=== PATIENT | female | born 1990 | race Caucasian/White ===

== ENCOUNTER 2016-12-16 18:21 | Outpatient (CLI) | payer OTHER ==
[~2016-12-16] VITALS: Ht 175.3 cm; Wt 81.5 kg
[2016-12-16 18:42] VITALS: Ht 175.3 cm; Wt 81.5 kg
[2016-12-16] MEDS ORDERED: PRENAT PO (18:43)
--- NOTE | 2016-12-16 19:12 | RADRPT ---
PROCEDURE: US OB. CLINICAL INDICATION: Cystic structure on left lung TECHNIQUE: Pelvic ultrasound performed for biophysical profile. COMPARISON: None FINDINGS: Single intrauterine gestation present with heart rate at 126 beats per minute. Presentation is ceph alic. Placenta is anterior, grade II. Biophysical profile score is 8/8 (breathing=2, movement=2, t one =2, fluid volume=2). Amniotic fluid volume is within normal limits, with MEDINA = 17.1 cm. RPTAT:HJJR IMPRESSION: Biophysical profile score 8/8. Physician Kelby Date Time Electronically viewed and signed by Physician Kelby on 12/16/2016 19:12 JR/
[2016-12-16] MEDS ORDERED: TERBUTALINE 1 MG/ML INJ SC ONE (20:00)
[2016-12-16 20:46] LABS: ADD SCAN DIFF NO
[2016-12-16 20:48] LABS: BASOPHILS % 0.3 % (0.0-2.0); EOSINOPHILS # 0.1 10^3/ul (0.0-0.5); EOSINOPHILS % 0.6 % (0.0-7.0); HEMATOCRIT 32.5 % (37.0-47.0); HEMOGLOBIN 11.3 g/dl (12.0-16.0); LYMPHOCYTES # 2.8 10^3/ul (0.8-2.9); MEAN CORPUSCULAR HEMOGLOBIN 31.2 pg (29.0-33.0); MEAN CORPUSCULAR HGB CONC 34.8 g/dl (32.0-37.0); MEAN CORPUSCULAR VOLUME 89.8 fl (82.0-101.0); MEAN PLATELET VOLUME 11.8 fl (7.4-10.4); MONOCYTE # 0.8 10^3/ul (0.3-0.9); MONOCYTES % 7.6 % (0.0-11.0); NEUTROPHIL # 6.7 10^3/ul (1.6-7.5); NEUTROPHILS % 63.8 % (39.0-77.0); PLATELET COUNT 188 10^3/UL (140-415); RED BLOOD COUNT 3.62 10^6/ul (4.20-5.40); RED CELL DISTRIBUTION WIDTH 12.4 % (11.5-14.5); WHITE BLOOD COUNT 10.5 10^3/ul (4.8-10.8)
[2016-12-16 21:01] LABS: ADD UMIC YES; URINE BILIRUBIN (Dip) NEGATIVE (NEGATIVE); URINE BLOOD (Dip) NEGATIVE (NEGATIVE); URINE COLOR LT. YELLOW (YELLOW); URINE GLUCOSE (Dip) NEGATIVE (NEGATIVE); URINE KETONES (Dip) NEGATIVE (NEGATIVE); URINE LEUKOCYTE ESTERASE (Dip) 2+ (NEGATIVE); URINE NITRITE (Dip) NEGATIVE (NEGATIVE); URINE TOTAL PROTEIN (Dip) NEGATIVE (NEGATIVE); URINE UROBILINOGEN (Dip) 0.2 E.U./dL (0.1-1.0)
[2016-12-16 21:10] LABS: ALBUMIN/GLOBULIN RATIO 0.96
[2016-12-16 21:13] LABS: URINE RBCS NONE SEEN /HPF (0)
[2016-12-16 21:14] LABS: BILIRUBIN,INDIRECT 0.2 mg/dl (0-1.1); BILIRUBIN,TOTAL 0.2 mg/dl (0.2-1.3); CALCIUM 8.8 mg/dl (8.4-10.2); CREATININE 0.74 mg/dl (0.44-1.00); TOTAL PROTEIN 6.1 g/dl (6.1-8.1); URIC ACID 6.1 mg/dl (3.1-7.9)
[2016-12-16 21:15] LABS: INR 0.83; PROTIME 11.4 Sec (12.2-14.2); PT RATIO 0.9
[2016-12-16 21:16] LABS: PARTIAL THROMBOPLASTIN TIME 30.3 Sec (25.0-35.0)
--- NOTE | 2016-12-16 22:51 | TRIAGE ---
OB Triage Datetime Report Generated by CPN: 12/16/2016 22:51 Datetime: 12/16/2016 22:10 Stage of : OB Triage Datetime: 12/16/2016 22:00 Labor Evaluation Frequency: IRREGULAR Monitor Mode: External Duration (sec)2399: 60 Quality: Mild Pattern: Normal: <= 5 Contractions in 10 Minutes Resting Tone [place]: Relaxed Heart Rate FHR Baseline Rate: 125 Monitor Mode: External US FHR Baseline Changes: No Baseline Change Variability: Moderate 6-25 bpm Accelerations: 15X15 Decelerations: None Category: Category I Datetime: 12/16/2016 21:00 Labor Evaluation Frequency: IRREGULAR Duration (sec)2399: 40-60 Pattern: Normal: <= 5 Contractions in 10 Minutes Resting Tone [place]: Relaxed Heart Rate FHR Baseline Rate: 125 Monitor Mode: External US FHR Baseline Changes: No Baseline Change Variability: Moderate 6-25 bpm Accelerations: 15X15 Decelerations: Variable Category: Category I Datetime: 12/16/2016 20:00 Labor Evaluation Frequency: 2-7 Monitor Mode: External Duration (sec)2399: 80-110 Quality: Mild Pattern: Normal: <= 5 Contractions in 10 Minutes Resting Tone [place]: Relaxed Heart Rate FHR Baseline Rate: 125 Monitor Mode: External US FHR Baseline Changes: No Baseline Change Variability: Moderate 6-25 bpm Accelerations: 15X15 Decelerations: None Category: Category I Datetime: 12/16/2016 19:39 Stage of : OB Triage Datetime: 12/16/2016 19:38 Stage of : OB Triage Datetime: 12/16/2016 18:55 Labor Evaluation Frequency: 1 Monitor Mode: External Duration (sec)2399: 80 Quality: Mild Pattern: Normal: <= 5 Contractions in 10 Minutes Resting Tone [place]: Relaxed Heart Rate FHR Baseline Rate: 120 Monitor Mode: External US FHR Baseline Changes: No Baseline Change Variability: Moderate 6-25 bpm Accelerations: 15X15 Decelerations: None Category: Category I Datetime: 12/16/2016 18:30 Stage of : OB Triage Assessment Type: Triage Maternal Assessment Level of Consciousness: Fully Conscious DTR's/Clonus: DTRs 2+; No Clonus Headache: Denies Blurred Vision: No Respiratory Effort: Unlabored; Regular Rhythm; Equal Expansion Breath Sounds, Left: Clear and Equal Breath Sounds, Right: Clear and Equal Nausea/Vomiting: Denies RUQ Epigastric Pain: Denies Lower Extremities Edema: None Degree: None Upper Extremities Edema: None Degree: None Facial Edema: None Temperature Route: Axillary Fall Risk Assessment History of Falling: (0) No Secondary Diagnosis: (0) No Ambulatory Aid: (0) Bedrest/Nurse Assist IV Therapy: (0) No Gait: (0) Normal/Bedrest/Immobile Mental Status: (0) Oriented to Own Ability Fall Score: 0 Fall Risk Score Definition: No Risk: No action required Datetime: 12/16/2016 18:20 Stage of : OB Triage Datetime: 12/16/2016 18:13 Time of Arrival: 12/16/2016 18:13 EGA: 34.2 Arrived By: Ambulatory Arrived From: Home Chief Complaint: CYSTIC STRUCTURE ON LEFT LUNG Movement: Present Contractions: Denies/Absent Rupture of Membranes: Denies Vaginal Bleeding: None Vaginal Discharge: Denies Recent Sexual Intercouse: Denies Abdominal Trauma: Not Applicable Patient Complaints: None Time Provider Notified: 12/16/2016 19:39 Provider Notified: CHRISTINA Initial Plan: CHAPIN MARTINEZ
--- NOTE | 2016-12-16 22:54 | QN ---
Documentation Comment Laborist Dr Machado's pt 26 y.o. 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 The ECHO was normal. Upon arrival it was noted that she has some mild blood pressure elevations. Pt denies visual changes , epigastric pain, or headache. She has some lower extremity swelling but does not report hand or facial swelling. Her BP's in the clinic were 110-129/58-77, the highest numbers being the most recent. Her BP in NST clinic 3 days ago was similar. PMHx: none. PSHx: none. NKDA. BP's: 153/77, 141/71, 136/70, 151/77, 136/76, 143/80, 172/86, 166/86, 166/90, 181/91, 170/83, 164/84. ALT/AST /. Uric acid 6.1 Platelets 188K. No protein on urine. NST:baseline 150 bpm with accels to 170 bpm. No decels. UC's were noted q2-13 minutes apart. After one dose of terbutaline they completely abated. A: IUP at 34 weeks. Gestational hypertension. CPAM. P: D/C home. Pt to begin a 24 hour urine collection in the morning and to return with it on Monday 12/18. Will re-evaluate her BP and labwork at that time. Reviewed PIH and the signs and symptoms and answered all the questions of the pt and her mother. She understands what signs to return sooner for. DOMI VASQUEZ MD December 16, 2016 22:54
== END 2016-12-16 22:19 | disposition home or self-care (01) ==
LOC: OBT 18:21 → L-D 18:22 → OBT 22:19
PROVIDERS: ATTEND Obstetrics & Gynecology
DX: O13.3 Gestational [pregnancy-induced] hypertension without significant proteinuria, third trimester (principal); Z3A.34 34 weeks gestation of pregnancy
CPT/HCPCS: 36415; 76818; 80053; 81001; 84560; 85025; 85610; 85730; 87086; J3105; Z7500; G0463

== ENCOUNTER 2016-12-18 09:07 | Outpatient (CLI) | payer OTHER ==
[~2016-12-18] VITALS: Ht 175.3 cm; Wt 81.1 kg
[~2016-12-18 09:07] MED LIST: PRENAT PO
[2016-12-18 09:30] LABS: COLLECTION PERIOD 24 hrs
[2016-12-18 09:38] VITALS: BP 131/72; PULSE 63; RESP 17
[2016-12-18 09:41] VITALS: Ht 175.3 cm; Wt 81.1 kg
[2016-12-18] MEDS ORDERED: TERBUTALINE 1 MG/ML INJ SC ONE (10:30)
[2016-12-18 10:50] LABS: ADD SCAN DIFF NO
[2016-12-18 11:00] LABS: BASOPHILS % 0.1 % (0.0-2.0); EOSINOPHILS % 0.3 % (0.0-7.0); HEMOGLOBIN 11.5 g/dl (12.0-16.0); LYMPHOCYTES # 2.7 10^3/ul (0.8-2.9); LYMPHOCYTES % 27.1 % (15.0-51.0); MEAN CORPUSCULAR HEMOGLOBIN 30.7 pg (29.0-33.0); MEAN CORPUSCULAR HGB CONC 33.8 g/dl (32.0-37.0); MEAN CORPUSCULAR VOLUME 90.9 fl (82.0-101.0); MEAN PLATELET VOLUME 11.9 fl (7.4-10.4); MONOCYTE # 0.7 10^3/ul (0.3-0.9); NEUTROPHIL # 6.4 10^3/ul (1.6-7.5); NEUTROPHILS % 64.9 % (39.0-77.0); PLATELET COUNT 187 10^3/UL (140-415); RED BLOOD COUNT 3.74 10^6/ul (4.20-5.40); RED CELL DISTRIBUTION WIDTH 12.5 % (11.5-14.5); WHITE BLOOD COUNT 9.9 10^3/ul (4.8-10.8)
[2016-12-18 11:30] LABS: ALBUMIN/GLOBULIN RATIO 0.96; BILIRUBIN,INDIRECT 0.3 mg/dl (0-1.1); BILIRUBIN,TOTAL 0.3 mg/dl (0.2-1.3); CALCIUM 8.4 mg/dl (8.4-10.2); CREATININE 0.82 mg/dl (0.44-1.00); POTASSIUM 4.4 mmol/L (3.5-5.1); TOTAL PROTEIN 6.1 g/dl (6.1-8.1)
[2016-12-18 11:54] LABS: SCRET 0.82 mg/dl (0.44-1.00)
[2016-12-18 12:14] LABS: ADD UMIC YES; URINE BILIRUBIN (Dip) NEGATIVE (NEGATIVE); URINE BLOOD (Dip) NEGATIVE (NEGATIVE); URINE COLOR LT. YELLOW (YELLOW); URINE GLUCOSE (Dip) NEGATIVE (NEGATIVE); URINE KETONES (Dip) NEGATIVE (NEGATIVE); URINE LEUKOCYTE ESTERASE (Dip) 1+ (NEGATIVE); URINE NITRITE (Dip) NEGATIVE (NEGATIVE); URINE TOTAL PROTEIN (Dip) 2+ (NEGATIVE); URINE UROBILINOGEN (Dip) 0.2 E.U./dL (0.1-1.0)
[2016-12-18 12:34] LABS: BACTERIA,URINE MODERATE
[2016-12-18] MEDS ORDERED: ACET325T45 PO (14:15)
[2016-12-18] MEDS ORDERED: BETAMET NA PHOS/AC(6 MG/ML) 5ML INJ IM ONE (17:00)
--- NOTE | 2016-12-18 17:16 | QN ---
Documentation Comment Laborist Dr Machado's pt 26 y.o. G1 with an IUP at 34w 4d and here for returning her 24 hour urine collection and recheck of her BP. No VAZQUEZ's, visual changes, or EGP. Her LE edema has actually improved. 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 PMHx:none. PSHx: none. NKDA. T=98.1 BP's: 131/72,128/76, 135/84. When the pt's mother showed up and was not feeling wqell and was very irritable the pt's BP's were: 143/89, 151/90, 170/ 90. When her mother left her BP's was 129/63. I sat her up for a BP reading and it was 171/93, then 145/85. NST: baseline 120 bpm with accels to 150 bpm. No decels. No UC's. ALT/AST /24. Plts 187K. Total protein over 24 hours >600 with TV of 1475 mls. A: IUP at 34w 4d. Baby with CPAM. PIH. P: Beta methasone 12.5 mg now. Pt to return in 24 hours for a repeat dose. Discussed with pt the diagnosis and that she will deliver by 37 weeks and very possibly earlier. Reviewed PIH sx's to return for. She will be followed twice a week with NST's/BPP's/ and labwork. Pt indicated understanding. She will discharged home to bedrest. She says she is not working and lives with her mother and will be able to comply. DOMI VASQUEZ MD December 18, 2016 17:16
--- NOTE | 2016-12-18 19:42 | TRIAGE ---
OB Triage Datetime Report Generated by CPN: 12/18/2016 19:41 Datetime: 12/18/2016 16:00 Stage of : OB Triage Level of Consciousness: Fully Conscious Headache: Denies Nausea/Vomiting: Denies RUQ Epigastric Pain: Denies Frequency: 0 Monitor Mode: External FHR Baseline Rate: OFF Monitor Mode: External US Pain Scale: 0 Pain Presence: None/Denies Datetime: 12/18/2016 15:00 Stage of : OB Triage Level of Consciousness: Fully Conscious Headache: Denies Nausea/Vomiting: Denies RUQ Epigastric Pain: Denies Frequency: X3 Monitor Mode: External Duration (sec)2399: 30-80 Quality: Mild FHR Baseline Rate: 135 Monitor Mode: External US Variability: Moderate 6-25 bpm Accelerations: 15X15 Decelerations: None Category: Category I Pain Scale: 0 Pain Presence: None/Denies Datetime: 12/18/2016 14:00 Stage of : OB Triage Level of Consciousness: Fully Conscious Headache: Denies Nausea/Vomiting: Denies RUQ Epigastric Pain: Denies Frequency: 7-14 Monitor Mode: External Duration (sec)2399: 30-80 Quality: Mild FHR Baseline Rate: 135 Monitor Mode: External US Variability: Moderate 6-25 bpm Accelerations: 15X15 Decelerations: None Category: Category I Pain Scale: 0 Pain Presence: None/Denies Datetime: 12/18/2016 13:00 Stage of : OB Triage Level of Consciousness: Fully Conscious Headache: Denies Nausea/Vomiting: Denies RUQ Epigastric Pain: Denies Frequency: X2 Monitor Mode: External Duration (sec)2399: 40-50 Quality: Mild FHR Baseline Rate: 135 Monitor Mode: External US Variability: Moderate 6-25 bpm Accelerations: 15X15 Decelerations: None Category: Category I Pain Scale: 0 Pain Presence: None/Denies Datetime: 12/18/2016 12:00 Stage of : OB Triage Level of Consciousness: Fully Conscious Headache: Denies Nausea/Vomiting: Denies RUQ Epigastric Pain: Denies Frequency: X2 Monitor Mode: External Duration (sec)2399: 30-40 Quality: Mild FHR Baseline Rate: 135 Monitor Mode: External US Variability: Moderate 6-25 bpm Accelerations: 15X15 Decelerations: None Category: Category I Pain Scale: 0 Pain Presence: None/Denies Datetime: 12/18/2016 11:00 Stage of : OB Triage Level of Consciousness: Fully Conscious Headache: Denies Nausea/Vomiting: Denies RUQ Epigastric Pain: Denies Frequency: X1 (Annotations: NOT FELT) Monitor Mode: External Duration (sec)2399: 80 Quality: Mild FHR Baseline Rate: 135 Monitor Mode: External US Variability: Moderate 6-25 bpm Accelerations: 15X15 Decelerations: None Category: Category I Pain Scale: 0 Pain Presence: None/Denies Datetime: 12/18/2016 10:00 Stage of : OB Triage Level of Consciousness: Fully Conscious DTR's/Clonus: DTRs 1+ Headache: Denies Nausea/Vomiting: Denies RUQ Epigastric Pain: Denies Frequency: 6-12 Monitor Mode: External Duration (sec)2399: 80 Quality: Mild Interventions: Side to Side FHR Baseline Rate: 135 Monitor Mode: External US Variability: Moderate 6-25 bpm Decelerations: Variable (Annotations: X2 MILD) Category: Category II Pain Scale: 0 Pain Presence: None/Denies Datetime: 12/18/2016 09:16 Level of Consciousness: Fully Conscious DTR's/Clonus: DTRs 1+ Headache: Denies Blurred Vision: No Nausea/Vomiting: Denies RUQ Epigastric Pain: Denies Facial Edema: None Frequency: 0 FHR Baseline Rate: 135 Variability: Moderate 6-25 bpm Decelerations: None Pain Scale: 0 Pain Presence: None/Denies Datetime: 12/18/2016 09:00 Time of Arrival: 12/18/2016 09:00 EGA: 34.4 Arrived By: Ambulatory Arrived From: Home Chief Complaint: pt brought 24 h urine protein and creat cl ordered Movement: Present Contractions: Denies/Absent Rupture of Membranes: Denies Vaginal Bleeding: None Vaginal Discharge: Denies Abdominal Trauma: Not Applicable Patient Complaints: None Additional Patient Complaints: NONE Time Provider Notified: 12/18/2016 10:00 Provider Notified: DR CASTRO Initial Plan: nst/check bp in sf position call dr castro
== END 2016-12-18 17:07 | disposition home or self-care (01) ==
LOC: OBT 09:07 → L-D 09:07 → OBT 17:07
PROVIDERS: ATTEND Obstetrics & Gynecology
DX: O13.3 Gestational [pregnancy-induced] hypertension without significant proteinuria, third trimester (principal); Z3A.34 34 weeks gestation of pregnancy
CPT/HCPCS: 36415; 80053; 81001; 82575; 84156; 85025; 87086; 96372; J0702; J3105; Z7500; G0463

== ENCOUNTER 2016-12-19 16:34 | Outpatient (CLI) | payer OTHER ==
[~2016-12-19] VITALS: Ht 175.3 cm; Wt 90.0 kg
[~2016-12-19 16:34] MED LIST changes: +ACET325T45 PO
[2016-12-19 16:59] VITALS: Ht 175.3 cm; Wt 90.0 kg
[2016-12-19 17:00] VITALS: BP 116/67; PULSE 82; RESP 20
[2016-12-19] MEDS ORDERED: BETAMET NA PHOS/AC(6 MG/ML) 5ML INJ IM ONE (17:30)
--- NOTE | 2016-12-19 17:43 | TRIAGE ---
OB Triage Datetime Report Generated by CPN: 12/19/2016 17:43 Datetime: 12/19/2016 16:57 Level of Consciousness: Fully Conscious DTR's/Clonus: DTRs 2+; No Clonus Blurred Vision: No Respiratory Effort: Unlabored; Regular Rhythm; Equal Expansion Breath Sounds, Left: Clear and Equal Breath Sounds, Right: Clear and Equal Nausea/Vomiting: Denies RUQ Epigastric Pain: Denies Facial Edema: None History of Falling: (0) No Secondary Diagnosis: (0) No Ambulatory Aid: (0) Bedrest/Nurse Assist IV Therapy: (0) No Gait: (0) Normal/Bedrest/Immobile Mental Status: (0) Oriented to Own Ability Fall Score: 0 Fall Risk Score Definition: No Risk: No action required Datetime: 12/19/2016 16:55 Time of Arrival: 12/19/2016 16:30 EGA: 34.5 Arrived By: Ambulatory Arrived From: Home Chief Complaint: ELEVATED B/P Movement: Present Contractions: Denies/Absent Patient Complaints: Other Provider Notified: CHRISTINA Initial Plan: EFM,CALL DR VASQUEZ Datetime: 12/19/2016 16:54 Level of Consciousness: Fully Conscious DTR's/Clonus: DTRs 2+; No Clonus Headache: Denies Blurred Vision: No Respiratory Effort: Unlabored; Regular Rhythm; Equal Expansion Breath Sounds, Left: Clear and Equal Breath Sounds, Right: Clear and Equal Nausea/Vomiting: Denies RUQ Epigastric Pain: Denies Facial Edema: None Temperature Route: Axillary History of Falling: (0) No Secondary Diagnosis: (0) No Ambulatory Aid: (0) Bedrest/Nurse Assist IV Therapy: (0) No Gait: (0) Normal/Bedrest/Immobile Mental Status: (0) Oriented to Own Ability Fall Score: 0 Fall Risk Score Definition: No Risk: No action required Datetime: 12/19/2016 16:51 Level of Consciousness: Fully Conscious DTR's/Clonus: DTRs 2+ Headache: Generalized Blurred Vision: No Nausea/Vomiting: Denies RUQ Epigastric Pain: Denies Facial Edema: None Frequency: NONE AT THIS TIME Pattern: Normal: <= 5 Contractions in 10 Minutes FHR Baseline Rate: 125 Monitor Mode: External US FHR Baseline Changes: No Baseline Change Variability: Moderate 6-25 bpm Accelerations: 15X15 Decelerations: None Category: Category I Pain Scale: 4 Pain Presence: Constant Pain Type: Pressure Pain Location: Head Membrane Status: Intact
--- NOTE | 2016-12-19 18:08 | QN ---
Documentation Comment iup 34 weeks vss exam wnl a/p iup 34 weeks false labor [facility] GENARO ALONZO MD December 19, 2016 18:08
== END 2016-12-19 17:45 | disposition home or self-care (01) ==
LOC: OBT 16:34 → L-D 16:36 → OBT 17:45
PROVIDERS: ATTEND Obstetrics & Gynecology
DX: O47.03 False labor before 37 completed weeks of gestation, third trimester (principal); Z3A.34 34 weeks gestation of pregnancy
CPT/HCPCS: J0702

== ENCOUNTER 2016-12-20 08:19 | Outpatient (CLI) | payer OTHER ==
[~2016-12-20] VITALS: Ht 175.3 cm; Wt 81.2 kg
[2016-12-20 08:45] VITALS: BP 122/69; PULSE 85; RESP 18
--- NOTE | 2016-12-20 09:30 | RADRPT ---
PROCEDURE: OB ultrasound for biophysical profile CLINICAL INDICATION: Poor tone. TECHNIQUE: Multiple sonographic images of the pelvis were obtained. Transabdominal views of the g ravid uterus are available for review. The images were reviewed on a PACS workstation. COMPARISON: None FINDINGS: breathing movement = 2/2 tone = 2/2 motion = 2/2 MEDINA = 2/2 MEDINA = 16.9 cm Single live intrauterine with cardiac activity of 131 bpm. position is cephal ic. The placenta is anterior. IMPRESSION: 1. Single live intrauterine gestation. 2. Biophysical profile = 8/8. 3. MEDINA = 16.9 cm. RPTAT: HH .Margarita Cooper MD, MD Date Time Electronically viewed and signed by .Margarita Cooper MD, on 12/20/2016 09:30 .G/
[2016-12-20 10:05] LABS: ADD SCAN DIFF NO
[2016-12-20 10:07] LABS: BASOPHILS % 0.2 % (0.0-2.0); HEMATOCRIT 31.6 % (37.0-47.0); HEMOGLOBIN 10.8 g/dl (12.0-16.0); LYMPHOCYTES # 1.7 10^3/ul (0.8-2.9); LYMPHOCYTES % 15.2 % (15.0-51.0); MEAN CORPUSCULAR HEMOGLOBIN 31.4 pg (29.0-33.0); MEAN CORPUSCULAR HGB CONC 34.2 g/dl (32.0-37.0); MEAN CORPUSCULAR VOLUME 91.9 fl (82.0-101.0); MEAN PLATELET VOLUME 11.6 fl (7.4-10.4); MONOCYTE # 0.6 10^3/ul (0.3-0.9); MONOCYTES % 5.1 % (0.0-11.0); NEUTROPHIL # 8.5 10^3/ul (1.6-7.5); NEUTROPHILS % 78.3 % (39.0-77.0); PLATELET COUNT 190 10^3/UL (140-415); RED BLOOD COUNT 3.44 10^6/ul (4.20-5.40); RED CELL DISTRIBUTION WIDTH 12.6 % (11.5-14.5); WHITE BLOOD COUNT 10.9 10^3/ul (4.8-10.8)
[2016-12-20 10:13] LABS: ADD UMIC YES; URINE BILIRUBIN (Dip) NEGATIVE (NEGATIVE); URINE BLOOD (Dip) TRACE (NEGATIVE); URINE COLOR LT. YELLOW (YELLOW); URINE GLUCOSE (Dip) NEGATIVE (NEGATIVE); URINE KETONES (Dip) 15 (NEGATIVE); URINE LEUKOCYTE ESTERASE (Dip) 2+ (NEGATIVE); URINE NITRITE (Dip) NEGATIVE (NEGATIVE); URINE TOTAL PROTEIN (Dip) 2+ (NEGATIVE); URINE UROBILINOGEN (Dip) 0.2 E.U./dL (0.1-1.0)
[2016-12-20 10:21] LABS: ALBUMIN 2.8 g/dl (3.3-4.9)
[2016-12-20 10:22] LABS: POTASSIUM 4.1 mmol/L (3.5-5.1)
[2016-12-20 10:24] LABS: ALBUMIN/GLOBULIN RATIO 0.93; BILIRUBIN,INDIRECT 0.4 mg/dl (0-1.1); BILIRUBIN,TOTAL 0.4 mg/dl (0.2-1.3); CREATININE 0.88 mg/dl (0.44-1.00); TOTAL PROTEIN 5.8 g/dl (6.1-8.1)
[2016-12-20 10:25] LABS: CALCIUM 8.3 mg/dl (8.4-10.2)
[2016-12-20 10:35] LABS: INR 0.92; PARTIAL THROMBOPLASTIN TIME 28.3 Sec (25.0-35.0); PROTIME 12.4 Sec (12.2-14.2)
[2016-12-20 10:39] LABS: BACTERIA,URINE FEW; SQUAMOUS EPITHELIAL CELL,UR MODERATE
--- NOTE | 2016-12-20 10:50 | TRIAGE ---
OB Triage Datetime Report Generated by CPN: 12/20/2016 10:49 Datetime: 12/20/2016 09:06 Frequency: x2 Monitor Mode: External Duration (sec)2399: 70 Quality: Mild Resting Tone [place]: Relaxed Contraction Comments: PT REPORTS NOT FEELING CONTRACTIONS FHR Baseline Rate: 125 Monitor Mode: External US FHR Baseline Changes: No Baseline Change Variability: Moderate 6-25 bpm Accelerations: 15X15 Decelerations: None Category: Category I Datetime: 12/20/2016 08:35 Stage of : OB Triage Level of Consciousness: Fully Conscious DTR's/Clonus: DTRs 2+; No Clonus Headache: Denies Blurred Vision: No Respiratory Effort: Unlabored; Regular Rhythm; Equal Expansion Breath Sounds, Left: Clear and Equal Breath Sounds, Right: Clear and Equal Nausea/Vomiting: Denies RUQ Epigastric Pain: Denies Lower Extremities Edema: Bilateral Lower Extremities Degree: Pitting Upper Extremities Edema: Bilateral Upper Extremities Degree: Pitting Facial Edema: None Temperature Route: Oral History of Falling: (0) No Secondary Diagnosis: (0) No Ambulatory Aid: (0) Bedrest/Nurse Assist IV Therapy: (0) No Gait: (0) Normal/Bedrest/Immobile Mental Status: (0) Oriented to Own Ability Fall Score: 0 Fall Risk Score Definition: No Risk: No action required Pain Scale: 0 Pain Presence: None/Denies Pain Type: N/A Pain Goal: 2 Datetime: 12/20/2016 08:30 Time of Arrival: 12/20/2016 08:15 EGA: 34.6 Arrived By: Ambulatory Arrived From: Home Chief Complaint: REPEAT BPP, NST, PIH LABS Movement: Present Contractions: Denies/Absent Rupture of Membranes: Denies Vaginal Bleeding: None Vaginal Discharge: Present Recent Sexual Intercouse: Denies Abdominal Trauma: Not Applicable Patient Complaints: Other Additional Patient Complaints: EDEMA LOWER EXTREMITIES Time Provider Notified: 12/20/2016 10:14 Provider Notified: MD VASQUEZ Initial Plan: NST, BPP, PIH LABS
--- NOTE | 2016-12-20 10:57 | PN ---
Date/Time of Note Date/Time of Note DATE: 12/20/16 TIME: 10:50 OB Subjective Subjective Subjective Patient is a 26-year-old 1 para 0 at 34+5 weeks of gestation She is here for NST and BPP and PIH labs OB Objective Objective Objective Blood pressure today 122/69 PIH labs consistent with 2+ proteinuria Patient also has a elevated 24 hour urine protein collection PROCEDURE: OB ultrasound for biophysical profile CLINICAL INDICATION: Poor tone. TECHNIQUE: Multiple sonographic images of the pelvis were obtained. Transabdominal views of the gravid uterus are available for review. The images were reviewed on a PACS workstation. COMPARISON: None FINDINGS: breathing movement = 2/2 tone = 2/2 motion = 2/2 MEDINA = 2/2 MEDINA = 16.9 cm Single live intrauterine with cardiac activity of 131 bpm. position is cephalic. The placenta is anterior. IMPRESSION: 1. Single live intrauterine gestation. 2. Biophysical profile = 8/8. 3. MEDINA = 16.9 cm. RPTAT: HH .Margarita Cooper MD, MD Date Time Electronically viewed and signed by .Margarita Cooper MD, MD on 12/20/2016 09 :30 .G/ CC: DOMI VASQUEZ MD OB Assessment/Plan Other Assessment: 34+ 5 weeks gestation with PIH here for NST and BPP BPP 8 out of 8 MEDINA 16.9 Other plan: Patient has an appointment with perinatologist this coming for evaluation of the fetus lungs She also has an appointment with her primary HE[facility] GUMMER on Patient has been counseled that she should be delivered no later than 37 weeks at term gestation She should return for NST and BPP on to triage ALIVIA LOCKE MD December 20, 2016 10:57
== END 2016-12-20 10:50 | disposition home or self-care (01) ==
LOC: L-D 08:19 → OBT 08:19
PROVIDERS: ATTEND Obstetrics & Gynecology
DX: O13.3 Gestational [pregnancy-induced] hypertension without significant proteinuria, third trimester (principal); Z3A.34 34 weeks gestation of pregnancy
CPT/HCPCS: 36415; 76818; 80053; 81001; 84560; 85025; 85384; 85610; 85730; Z7500; G0463

== ENCOUNTER 2016-12-23 09:34 | Inpatient (IN) | payer OTHER ==
[~2016-12-23] VITALS: Ht 175.3 cm; Wt 82.6 kg
[2016-12-23 09:42] VITALS: Ht 175.3 cm; Wt 82.6 kg
[2016-12-23 09:43] VITALS: BP 188/105; RESP 16
[2016-12-23] MEDS ORDERED: MAGNESIUM SULFATE 4 GM/100 ML 100 ML ONE (10:07)
[2016-12-23 10:13] LABS: ADD SCAN DIFF NO
[2016-12-23 10:21] LABS: BASOPHILS % 0.4 % (0.0-2.0); EOSINOPHILS # 0.1 10^3/ul (0.0-0.5); EOSINOPHILS % 0.6 % (0.0-7.0); HEMOGLOBIN 11.9 g/dl (12.0-16.0); LYMPHOCYTES % 27.8 % (15.0-51.0); MEAN CORPUSCULAR HEMOGLOBIN 31.1 pg (29.0-33.0); MEAN CORPUSCULAR VOLUME 91.4 fl (82.0-101.0); MEAN PLATELET VOLUME 12.1 fl (7.4-10.4); MONOCYTE # 0.9 10^3/ul (0.3-0.9); MONOCYTES % 8.5 % (0.0-11.0); NEUTROPHIL # 6.6 10^3/ul (1.6-7.5); NEUTROPHILS % 61.3 % (39.0-77.0); NUCLEATED RED BLOOD CELLS% 0.4 /100WBC (0.0-0.0); PLATELET COUNT 217 10^3/UL (140-415); RED BLOOD COUNT 3.83 10^6/ul (4.20-5.40); RED CELL DISTRIBUTION WIDTH 12.6 % (11.5-14.5); WHITE BLOOD COUNT 10.8 10^3/ul (4.8-10.8)
[2016-12-23] MEDS ORDERED: LACTATED RINGER'S 1,000 ML IV SCH ×2 (10:30→11:25)
[2016-12-23] MEDS ORDERED: MAGNESIUM SULFATE 4 GM/100 ML 100 ML IVPB ONE (10:30)
[2016-12-23] MEDS ORDERED: MAGNESIUM SULFATE 2 GM/50 ML 50 ML IVPB ONE (10:30)
[2016-12-23] MEDS ORDERED: BETAMET NA PHOS/AC(6 MG/ML) 5ML INJ IM ONE (10:30)
[2016-12-23] MEDS ORDERED: LABETALOL HCL 20MG INJ IV ONE ×2 (10:30→11:30)
[2016-12-23 10:42] LABS: ALBUMIN 3.6 g/dl (3.3-4.9); ALBUMIN/GLOBULIN RATIO 1.5; BILIRUBIN,INDIRECT 0.3 mg/dl (0-1.1); BILIRUBIN,TOTAL 0.3 mg/dl (0.2-1.3); CALCIUM 8.8 mg/dl (8.4-10.2); CREATININE 0.9 mg/dl (0.44-1.00); POTASSIUM 4.5 mmol/L (3.5-5.1); URIC ACID 6.6 mg/dl (3.1-7.9)
[2016-12-23] MEDS: MAGNESIUM SULFATE 20 GM/500 ML 500 ML IV SCH ×2 (10:46→20:31)
[2016-12-23 10:50] LABS: ADD UMIC YES; URINE BILIRUBIN (Dip) NEGATIVE (NEGATIVE); URINE BLOOD (Dip) NEGATIVE (NEGATIVE); URINE COLOR LT. YELLOW (YELLOW); URINE GLUCOSE (Dip) NEGATIVE (NEGATIVE); URINE KETONES (Dip) NEGATIVE (NEGATIVE); URINE LEUKOCYTE ESTERASE (Dip) TRACE (NEGATIVE); URINE NITRITE (Dip) NEGATIVE (NEGATIVE); URINE TOTAL PROTEIN (Dip) 2+ (NEGATIVE); URINE UROBILINOGEN (Dip) 0.2 E.U./dL (0.1-1.0)
[2016-12-23] MEDS ORDERED: AL HYDROX/MG HYDROX/SIMETH 30 ML CUP PO ONE (11:00)
[2016-12-23 11:18] LABS: BACTERIA,URINE FEW; URINE RBCS NONE SEEN /HPF (0)
--- NOTE | 2016-12-23 11:47 | TRIAGE ---
OB Triage Datetime Report Generated by CPN: 12/23/2016 11:47 Datetime: 12/23/2016 11:30 Comments: traNSFWERED PATIENT TO FB1 VIA GURNEY- HANDED OFF CARE TO DANIELLE RN Datetime: 12/23/2016 11:05 Labor Evaluation Frequency: 0 Monitor Mode: External Pattern: Normal: <= 5 Contractions in 10 Minutes Resting Tone [place]: Relaxed Heart Rate FHR Baseline Rate: 125 Monitor Mode: External US Variability: Moderate 6-25 bpm Accelerations: 15X15 Decelerations: None Category: Category I Pain Assessment Pain Scale: 8 Pain Presence: Constant Pain Type: Ache Pain Location: Head Pain Goal: 0 Pain Relief Measures: Comfort Measures Datetime: 12/23/2016 10:42 Labor Evaluation Frequency: 0 Pattern: Normal: <= 5 Contractions in 10 Minutes Resting Tone [place]: Relaxed Heart Rate FHR Baseline Rate: 150 Monitor Mode: External US Variability: Moderate 6-25 bpm Accelerations: 15X15 Decelerations: None Category: Category I Pain Presence: Constant Pain Type: Ache Pain Location: Abdomen; Sternum Pain Relief Measures: Comfort Measures Datetime: 12/23/2016 09:48 Stage of : OB Triage Assessment Type: Triage Time Provider Notified: 12/23/2016 09:40 Provider Notified: Dr. Briscoe Maternal Assessment Level of Consciousness: Fully Conscious DTR's/Clonus: DTRs 2+; No Clonus Headache: Denies Blurred Vision: No Respiratory Effort: Unlabored; Regular Rhythm; Equal Expansion Breath Sounds, Left: Clear and Equal Breath Sounds, Right: Clear and Equal Nausea/Vomiting: Denies RUQ Epigastric Pain: Denies Lower Extremities Edema: Bilateral Lower Extremities Degree: Pitting Upper Extremities Edema: None Degree: None Facial Edema: None Temperature Route: Oral Fall Risk Assessment History of Falling: (0) No Secondary Diagnosis: (0) No Ambulatory Aid: (0) Bedrest/Nurse Assist IV Therapy: (0) No Gait: (0) Normal/Bedrest/Immobile Mental Status: (0) Oriented to Own Ability Fall Score: 0 Fall Risk Score Definition: No Risk: No action required Monitor Mode: External Heart Rate FHR Baseline Rate: 155 Monitor Mode: External US Variability: Moderate 6-25 bpm Accelerations: 15X15 Decelerations: None Category: Category I Pain Assessment Pain Scale: 0 Pain Presence: None/Denies Pain Type: N/A Datetime: 12/23/2016 09:30 Arrived By: Wheelchair Arrived From: Dr. Velarde Chief Complaint: SENT FOR ELEVATED B/P FROM NST Movement: Present Contractions: Denies/Absent Rupture of Membranes: Denies Vaginal Discharge: Denies Recent Sexual Intercouse: Denies Abdominal Trauma: Not Applicable Patient Complaints: None Additional Patient Complaints: patient arrived and started to have headache epigastric pain, vommi tting, Time Provider Notified: 12/23/2016 09:40 Provider Notified: DR. BRISCOE Initial Plan: efmx2, measure blood pressure, us for liver. Datetime: 12/20/2016 08:35 Fall Score: 0 Fall Risk Score Definition: No Risk: No action required Datetime: 12/20/2016 08:30 EGA: 34.6 Datetime: 12/19/2016 16:57 Fall Score: 0 Fall Risk Score Definition: No Risk: No action required Datetime: 12/19/2016 16:55 EGA: 34.5 Datetime: 12/19/2016 16:54 Fall Score: 0 Fall Risk Score Definition: No Risk: No action required Datetime: 12/18/2016 09:00 EGA: 34.4 Datetime: 12/16/2016 18:30 Fall Score: 0 Fall Risk Score Definition: No Risk: No action required Datetime: 12/16/2016 18:13 EGA: 34.2
[2016-12-23] MEDS ORDERED: CEFAZOLIN 2 GM/50 ML (PMX) 50 ML IVPB ONE ×2 (13:00→23:15)
[2016-12-23] MEDS ORDERED: LACTATED RINGER'S 500 ML IV ONE ×2 (13:21→23:36)
[2016-12-23] MEDS ORDERED: CITRIC ACID/SODIUM CITRATE 15 ML CUP PO ONE (13:30)
[2016-12-23] MEDS ORDERED: FAMOTIDINE 20 MG INJ IV ONE (13:30)
[2016-12-23] MEDS ORDERED: METOCLOPRAMIDE 10 MG INJ IV ONE (13:30)
--- NOTE | 2016-12-23 15:03 | RADRPT ---
PROCEDURE: Right Upper Quadrant Ultrasound. CLINICAL INDICATION: Elevated blood pressure, 35 weeks TECHNIQUE: Multiple real-time images were acquired of the patient's right upper quadrant abdomen a nd retroperitoneum utilizing a high resolution transducer. COMPARISON: None FINDINGS: The liver measures 15.3 cm, and demonstrates normal echogenicity. The main portal vein is patent wit h proper directional flow. There is no intrahepatic biliary ductal dilatation. The extrahepatic comm on bile duct measures 3 mm. The gallbladder is without stones, wall thickening, or pericholecystic fluid. The visualized pancreas is unremarkable. The right kidney measures 12.6 cm and demonstrates normal echotexture. There is mild to moderate rig ht hydronephrosis. The visualized abdominal aorta and IVC are grossly unremarkable. IMPRESSION: Mild to moderate right hydronephrosis. No cholelithiasis or acute cholecystitis. Normal CBD. RPTAT: EE Physician Charleen Date Time Electronically viewed and signed by Physician Charleen on 12/23/2016 15:03 /
[2016-12-23] MEDS ORDERED: LABETALOL 200 MG TAB PO SCH (15:55)
--- NOTE | 2016-12-23 17:45 | HP ---
Date/Time of Note Date/Time of Note DATE: 12/23/16 TIME: 17:37 OB - History Hx of Present Free Text/Dictation sent in by NST unit for BP exceeding 180/100 Chief Complaint: nausea and vomitting Last Menstrual Period: Apr 22, 2016 Estimated Due Date: Jan 27, 2017 : 1 Para: 0 Care: Good Care Ultrasounds: Normal mid trimester US Obstetrical Complications: None Medical Complications: None Past Family/Social History * Past Medical, Surgical, Family and Obstetric Histories reviewed from chart. Blood Type: O+ Rubella: immune RPR/VDRL: Negative GBS Status: Unknown HBsAG: Negative OB Admission Exam Vital Signs Vital Signs Vital Signs Date Time Temp Pulse Resp B/P Pulse Ox O2 Delivery O2 Flow Rate FiO2 12/23/16 09:43 98.5 16 188/105 Room Air Physical Exam HEENT: WNL Heart: Rhythm Normal Lungs: Clear, Equal Abdomen: WNL Extremities: Normal Reflexes: Normal Cervical Dilatation: None Effacement: 0% Station: -3 Membranes: Intact Heart Rate: 130's Accelerations: Accelerations Present Decelerations: No Decelerations Varibility: Moderate Contractions on Admission: None Last 72 hours Lab Results CBC & BMP 12/23/16 09:56 Liver Function Test 12/23/16 09:56 Alanine Aminotransferase (ALT/SGPT) 32 Albumin 3.6 Alkaline Phosphatase 152 H Aspartate Amino Transf (AST/SGOT) 27 Direct Bilirubin 0.00 Total Protein 6.0 L Magnesium Level Test 12/23/16 12:18 Magnesium Level 4.1 H OB Assessment/Plan Other Assessment: severe PIH 35 weeks gestation baby with cysts in the chest : Echo: Normal : [facility] delivery Induction Method: per Misoprostol Protocol Other plan: Perinatologist doctor Kelvin was contacted L recommended delivery GISEL LAWLER MD Dec 23, 2016 17:45
[2016-12-23] MEDS ORDERED: AMPICILLIN 2 GM/NS (PMX) 100 ML ONE (17:47)
[2016-12-23] MEDS ORDERED: AMPICILLIN 2 GM/NS (PMX) 100 ML IV ONE (18:00)
[2016-12-23] MEDS ORDERED: DINOPROSTONE 10 MG VAG SUPP VAG ONE (18:00)
[2016-12-23] MEDS ORDERED: OXYTOCIN 30 UNITS/LR 500 ML IV SCH ×2 (21:00)
[2016-12-23] MEDS ORDERED: morphine 10 MG INJ IM PRN (21:30)
[2016-12-23] MEDS ORDERED: LABETALOL HCL 20MG INJ IV PRN (21:30)
[2016-12-23] MEDS ORDERED: AMPICILLIN 1 GM/NS (PMX) 50 ML IV SCH (22:00)
[2016-12-23] MEDS ORDERED: ACETAMINOPHEN 1000MG/100ML IV 100 ML IVPB ONE (23:15)
[2016-12-23] MEDS ORDERED: MISOPROSTOL 200 MCG TAB PR PRN (23:30)
[2016-12-23] MEDS ORDERED: CARBOPROST 250 MCG INJ IM PRN (23:30)
[2016-12-23] MEDS ORDERED: METHYLERGONOVINE 0.2 MG INJ IM PRN (23:30)
[2016-12-23] MEDS ORDERED: OXYTOCIN 30 UNITS/LR 500 ML IV PRN (23:30)
[2016-12-24] VITALS (14 sets, daily range): BP systolic 125–167; BP diastolic 77–104; PULSE 63–72; RESP 17–20
[2016-12-24] MEDS ORDERED: METOCLOPRAMIDE 10 MG INJ IV ONE
[2016-12-24] MEDS ORDERED: CITRIC ACID/SODIUM CITRATE 15 ML CUP PO ONE
[2016-12-24] MEDS ORDERED: FAMOTIDINE 20 MG INJ IV ONE
[2016-12-24 00:31] LABS: INR 0.91; PROTIME 12.2 Sec (12.2-14.2)
--- NOTE | 2016-12-24 00:58 | QN ---
Documentation Comment patient self decided to have C/S as mode of her delivery. Considering severe PIH and patient's symptoms will proceed with primary C/S GISEL LAWLER MD Dec 24, 2016 00:58
--- NOTE | 2016-12-24 00:59 | QN ---
Documentation Comment Patient had good awareness of nature and complications of C/S procedure including but but limited to infection and hemorrhage. and agreed to undergo C/ S . GISEL LAWLER MD Dec 24, 2016 00:59
[2016-12-24] MEDS ORDERED: OXYTOCIN 30 UNITS/LR 500 ML IV ONE ×2 (01:50→02:38)
[2016-12-24] MEDS ORDERED: morphine SULFATE/PF (10 MG/10 ML) INJ ONE (01:50)
[2016-12-24] MEDS ORDERED: FENTAnyl 50 MCG/ML VIAL ONE (01:50)
[2016-12-24] MEDS ORDERED: MEPERIDINE 100 MG INJ ONE (02:23)
[2016-12-24] MEDS ORDERED: ONDANSETRON 4 MG INJ ONE (02:23)
[2016-12-24] MEDS ORDERED: DIPHENHYDRAMINE 50 MG INJ IV PRN ×2 (02:30→03:30)
[2016-12-24] MEDS ORDERED: MEPERIDINE 25 MG INJ IV PRN (02:30)
[2016-12-24] MEDS ORDERED: FENTAnyl 50 MCG/ML VIAL IV PRN (02:30)
[2016-12-24] MEDS ORDERED: ONDANSETRON 4 MG INJ IV PRN ×2 (02:30→03:30)
[2016-12-24] MEDS ORDERED: HYDROmorphONE (0.2 MG/ML) 10ML SYG IV PRN (02:30)
[2016-12-24] MEDS ORDERED: KETOROLAC 30 MG INJ IV PRN (02:30)
[2016-12-24] MEDS ORDERED: PROCHLORPERAZINE 10 MG INJ IV PRN ×2 (02:30→03:30)
--- NOTE | 2016-12-24 02:53 | OPR ---
Operative Report Planned Procedure Procedure date Dec 24, 2016 Procedure(s) primary C/S Performed by: GISEL LAWLER MD Assisting provider: ZEESHAN PACHECO MD Anesthesiologist: KARIME GRIMALDO MD Pre-procedure diagnosis severe PIH at 35.1 weeks patient desires C/S Anesthesia Type: spinal Procedure Description Under satisfactory anaesthesia a Pfannenstiel incision was made two fingerbreadth above and parallel to the symphysis of pubis. Incision was extended laterally to the border of the Recti muscles on either sides. Incision was carried down with sharp and blunt dissection until fascia was reached. Anterior Recti muscle fascia was incised in mid portion and incision extended laterally to the border of skin incision. Fascia was mobilized from muscle superiorly and Recti muscles were from midline using sharp and blunt dissection. Peritoneum was visualized; Avoiding bowel and bladder it was incised . Incision was extended superiorly and inferiorly. Bladder blade was placed. Posterior peritoneum covering the lower segment of the uterus and lower segment of the uterus were incised. Incision was extended laterally to the border of Round Lig. on either sides and baby was delivered from OP. position . Amniotic fluid appeared clear. Cord blood was obtained and cord had 3 vessels . Placenta was delivered spontaneously and appeared intact and complete. Intrauterine cavity was rubbed with a laparotomy sponge. Uterine incision was closed in 2 layers using running stitches of No1 Monocryl. Hemostasis appeared secure. Ovaries and Fallopian tubes were within normal limits. Announcing needle, lap sponge and instrument count to be correct abdomen was closed in layers as follows: Peritoneum and Recti muscles with running stitches of 20 Vicryl. Fascia with running stitch of No 1 PDS. Subcutaneous tissue with running stitches of 20 Chromic and skin was closed using willi. Patient tolerated the procedure well and was transferred to [facility] in good condition. Post-Procedure Post-procedure diagnosis S/P C/S Findings: Live Baby Specimen removed: No Complications: None Pt Condition post procedure: stable Disposition: PACU Physician Certification I, the undersigned physician, hereby certify that I have discussed the procedure described in this consent form with this patient (or the patient's legal petroleum products sales representative), including: * The risk and benefits of the procedure; * Any adverse reactions that may reasonably be expected to occur; * Any alternative efficacious methods of treatment which may be medically viable ; * The potential problems that may occur during recuperation; * Potential for blood transfusion and associated risks/benefits; and * Any research or economic interest I may have regarding this treatment. I further certify that the patient/legally responsible person was encouraged to ask question and that all questions were answered. GISEL LAWLER MD Dec 24, 2016 02:53
[2016-12-24] MEDS ORDERED: HYDROmorphONE 1 MG/ML SYG IV PRN ×2 (03:30)
[2016-12-24] MEDS ORDERED: NALOXONE (0.4 MG/ML) INJ IV PRN (03:30)
[2016-12-24] MEDS ORDERED: ZOLPIDEM 5 MG TAB PO PRN (03:30)
[2016-12-24] MEDS ORDERED: MISOPROSTOL 200 MCG TAB PR PRN (04:00)
[2016-12-24] MEDS ORDERED: LANOLIN 7 GM TUBE TOP PRN (04:00)
[2016-12-24] MEDS ORDERED: CEFAZOLIN 2 GM/50 ML (PMX) 50 ML IV SCH (04:00)
[2016-12-24] MEDS ORDERED: METHYLERGONOVINE 0.2 MG INJ IM PRN (04:00)
[2016-12-24] MEDS ORDERED: CARBOPROST 250 MCG INJ IM PRN (04:00)
[2016-12-24] MEDS ORDERED: NA PHOSPHATE/BIPHOS 133 ML ENEMA PR PRN (04:00)
[2016-12-24] MEDS ORDERED: OXYTOCIN 30 UNITS/LR 500 ML IV PRN (04:00)
[2016-12-24] MEDS: MAGNESIUM SULFATE 20 GM/500 ML 500 ML IV SCH ×2 (04:06→17:40)
[2016-12-24] MEDS: KETOROLAC 30 MG INJ IV PRN ×3 (04:19→20:37)
[2016-12-24] MEDS: CLINDAMYCIN 300 MG CAP PO SCH ×3 (06:34→17:40)
[2016-12-24] MEDS: SENNA/DOCUSATE NA (8.6MG/50MG) TAB PO SCH ×2 (09:17→20:37)
[2016-12-24] MEDS: LABETALOL 200 MG TAB PO SCH ×2 (09:21→20:37)
[2016-12-24] MEDS: LACTATED RINGER'S 1,000 ML IV SCH ×3 (11:38→19:38)
[2016-12-24] MEDS ORDERED: BISACODYL 10 MG SUPP PR ONE (13:00)
--- NOTE | 2016-12-24 14:14 | NSTRPT ---
NST Information Datetime Report Generated by CPN: 12/24/2016 14:14 Datetime: 12/23/2016 08:30 NST Information EGA: 35.0 Test Number: 4 Time on Monitor: 12/23/2016 08:44 Time off Monitor: 12/23/2016 09:20 NST Duration (Min): 36 Reason for NST: Other Reason for NST Other: Cystic Structure on chest Test and Monitor Explained: Monitor Explained; Test Explained; Verbalized Understanding Pulse: 48 Resp: 17 SBP: 186 DBP: 99 Test Evaluation NST Interventions: Reposition Patient Patient States Movement: Present Contraction Frequency: x1, denies FHR Baseline : 125 Variability: Moderate 6-25bpm Accelerations: 15X15 Decelerations: None FHR Category: Category I NST Results: Reactive Comments: Pt to U/S, MEDINA 17.3cm, cephalic. 914-Report given to Dr. Machado. New orders received. S enD pt to OB-TRG for evaluation for elevated BPs. Explained to pt plan of care. Pt states understand ing. 921- Pt to OB-TRG as ordered via w/c with school boat driver. Electronically Signed By E-Signature: with User ID: [id number] Datetime: 12/21/2016 08:25 NST Information EGA: 34.5 NST Duration (Min): 41 Datetime: 12/13/2016 09:52 NST Information EGA: 33.4 NST Duration (Min): 26
[2016-12-24] MEDS: CEFAZOLIN 2 GM/50 ML (PMX) 50 ML IVPB SCH (21:07)
[2016-12-25] VITALS (7 sets, daily range): BP systolic 135–151; BP diastolic 64–97; PULSE 57–70; RESP 15–19
[2016-12-25] MEDS: CLINDAMYCIN 300 MG CAP PO SCH ×5 (01:58→23:32)
[2016-12-25] MEDS ORDERED: ACETAMINOPHEN/CODEINE #3 TAB PO PRN (02:03)
[2016-12-25] MEDS: LACTATED RINGER'S 1,000 ML IV SCH ×3 (03:38→19:38)
[2016-12-25] MEDS: CEFAZOLIN 2 GM/50 ML (PMX) 50 ML IVPB SCH (05:13)
[2016-12-25] MEDS: IBUPROFEN 800 MG TAB PO SCH ×3 (05:28→21:33)
[2016-12-25 07:56] LABS: ADD SCAN DIFF NO
[2016-12-25 07:57] LABS: BASOPHILS % 0.1 % (0.0-2.0); HEMATOCRIT 32.8 % (37.0-47.0); HEMOGLOBIN 10.7 g/dl (12.0-16.0); LYMPHOCYTES # 2.1 10^3/ul (0.8-2.9); LYMPHOCYTES % 13.4 % (15.0-51.0); MEAN CORPUSCULAR HEMOGLOBIN 30.6 pg (29.0-33.0); MEAN CORPUSCULAR HGB CONC 32.6 g/dl (32.0-37.0); MEAN CORPUSCULAR VOLUME 93.7 fl (82.0-101.0); MEAN PLATELET VOLUME 11.7 fl (7.4-10.4); MONOCYTE # 0.6 10^3/ul (0.3-0.9); MONOCYTES % 4.1 % (0.0-11.0); NEUTROPHIL # 12.5 10^3/ul (1.6-7.5); NEUTROPHILS % 81.1 % (39.0-77.0); NUCLEATED RED BLOOD CELLS% 0.1 /100WBC (0.0-0.0); PLATELET COUNT 192 10^3/UL (140-415); RED CELL DISTRIBUTION WIDTH 13.2 % (11.5-14.5); WHITE BLOOD COUNT 15.4 10^3/ul (4.8-10.8)
[2016-12-25] MEDS: LABETALOL 200 MG TAB PO SCH ×2 (09:36→21:27)
[2016-12-25] MEDS: SENNA/DOCUSATE NA (8.6MG/50MG) TAB PO SCH ×2 (09:36→21:26)
[2016-12-25] MEDS: OXYCODONE/ACETAMINOPHEN (5/325) TAB PO PRN (11:04)
--- NOTE | 2016-12-25 12:50 | PN ---
Date/Time of Note Date/Time of Note DATE: 12/25/16 TIME: 12:49 Assessment/Plan VTE Prophylaxis VTE Prophylaxis Intervention: ambulation Lines/Catheters IV Catheter Type (from Nrsg): Peripheral IV Assessment/Plan Assessment/Plan POD # 1 S/ P C/S will advance diet and ambulate Subjective 24 Hr Interval Summary No BM passing flatus Constitutional: BM, ambulates, flatus, improved, no complaints, urine output Pain Control: well controlled Exam/Review of Systems Vital Signs Vitals Vital Signs Date Time Temp Pulse Resp B/P Pulse Ox O2 Delivery O2 Flow Rate FiO2 12/25/16 08:15 97.9 61 17 135/94 Room Air 12/25/16 05:12 97 21 Intake and Output 12/24/16 12/24/16 12/25/16 15:00 23:00 07:00 Intake Total 700.0 ml 837.5 ml 375.0 ml Output Total 1500 ml 1900 ml Balance 700.0 ml -662.5 ml -1525.0 ml Exam Free Text/Dictation Abdomen: soft bs + incision: covered Constitutional: alert, oriented, well developed Psych: nl mood/affect, no complaints Head: atraumatic, normocephalic Eyes: EOMI, nl conjunctiva, nl lids, nl sclera ENMT: mucosa pink and moist, nl external ears & nose, nl lips & teeth, nl nasal mucosa & septum Neck: non-tender, supple Respiratory: clear to auscultation, normal air movement Cardiovascular: nl pulses, regular rate and rhythm Gastrointestinal: nl liver, spleen, non-tender, soft Drains none Musculoskeletal: nl extremities to inspection, nl gait and stance Extremities: normal pulses Neurological: BR[employer]ADB[employer] INSTALLER II-XII intact, nl mental status, nl speech, nl strength Skin: nl turgor, rash or lesions Lymph: nl lymph nodes Results Result Diagram: 12/25/16 0654 12/23/16 0956 GISEL LAWLER MD Dec 25, 2016 12:50
[2016-12-25] MEDS ORDERED: BISACODYL 10 MG SUPP PR SCH (13:00)
[2016-12-26] MEDS: LACTATED RINGER'S 1,000 ML IV SCH ×2 (03:38→11:38)
[2016-12-26 04:30] VITALS: BP 148/70; PULSE 60
[2016-12-26] MEDS: OXYCODONE/ACETAMINOPHEN (5/325) TAB PO PRN (04:36)
[2016-12-26] MEDS: CLINDAMYCIN 300 MG CAP PO SCH ×3 (06:53→17:50)
[2016-12-26] MEDS: IBUPROFEN 800 MG TAB PO SCH ×3 (06:53→21:53)
[2016-12-26 08:40] VITALS: BP 139/80; PULSE 60; RESP 17
[2016-12-26] MEDS: LABETALOL 200 MG TAB PO SCH ×2 (09:35→21:52)
[2016-12-26] MEDS: SENNA/DOCUSATE NA (8.6MG/50MG) TAB PO SCH ×2 (09:35→21:53)
[2016-12-26 09:56] LABS: ADD SCAN DIFF NO
[2016-12-26] MEDS ORDERED: AL HYDROX/MG HYDROX/SIMETH 30 ML CUP PO PRN (10:00)
[2016-12-26 10:23] LABS: ALBUMIN 3.4 g/dl (3.3-4.9); ALBUMIN/GLOBULIN RATIO 1.41; BILIRUBIN,INDIRECT 0.3 mg/dl (0-1.1); BILIRUBIN,TOTAL 0.3 mg/dl (0.2-1.3); CALCIUM 7.9 mg/dl (8.4-10.2); CREATININE 0.87 mg/dl (0.44-1.00); POTASSIUM 4.1 mmol/L (3.5-5.1); TOTAL PROTEIN 5.8 g/dl (6.1-8.1)
[2016-12-26 10:57] LABS: BASOPHILS % 0.1 % (0.0-2.0); EOSINOPHILS # 0.1 10^3/ul (0.0-0.5); EOSINOPHILS % 0.4 % (0.0-7.0); HEMATOCRIT 32.8 % (37.0-47.0); HEMOGLOBIN 10.4 g/dl (12.0-16.0); LYMPHOCYTES # 2.6 10^3/ul (0.8-2.9); LYMPHOCYTES % 19.2 % (15.0-51.0); MEAN CORPUSCULAR HEMOGLOBIN 30.2 pg (29.0-33.0); MEAN CORPUSCULAR HGB CONC 31.7 g/dl (32.0-37.0); MEAN CORPUSCULAR VOLUME 95.3 fl (82.0-101.0); MEAN PLATELET VOLUME 11.3 fl (7.4-10.4); MONOCYTE # 0.6 10^3/ul (0.3-0.9); MONOCYTES % 4.3 % (0.0-11.0); NEUTROPHIL # 10.2 10^3/ul (1.6-7.5); NEUTROPHILS % 74.9 % (39.0-77.0); NUCLEATED RED BLOOD CELLS% 0.3 /100WBC (0.0-0.0); PLATELET COUNT 157 10^3/UL (140-415); RED BLOOD COUNT 3.44 10^6/ul (4.20-5.40); RED CELL DISTRIBUTION WIDTH 13.4 % (11.5-14.5); WHITE BLOOD COUNT 13.6 10^3/ul (4.8-10.8)
[2016-12-26 12:00] VITALS: BP 134/68; PULSE 65; RESP 19
[2016-12-26 15:29] VITALS: BP 128/75; PULSE 71; RESP 19
--- NOTE | 2016-12-26 16:21 | DS ---
Date/Time of Note Date/Time of Note home next day DATE: 12/26/16 TIME: 16:20 Obstetrical Discharge Record Final Diagnosis Final Diagnosis: delivered Other Final Diagnosis S/P C/S Section Section: Primary Primary Indication severe PIH Complications Preg induced Hypertension Condition on Discharge Physical Assessment Last Vitals: see nurses notes Voiding: Yes Bowel Movement: Yes Breast: Soft, non-tender, Filling Fundus: Firm Abdomen and Incision: soft BS + Incision : healing well Episiotomy: NA Calf Tenderness: No Patient Condition: Good GISEL LAWLER MD Dec 26, 2016 16:21
--- NOTE | 2016-12-26 16:23 | DS ---
Date/Time of Note Date/Time of Note DATE: 12/26/16 TIME: 16:21 Discharge Summary Admission/Discharge Info Admit Date/Time Dec 23, 2016 at 11:35 Discharge Date/Time 12/27/2016 Final Diagnosis S/P C/S Patient Condition: Good Procedures primary C/S Hx of Present Illness 26 y/o female had C/S for severe PIH Hospital Course uncomplicated Home Meds Reported Medications Acetaminophen* (Acetaminophen*) 325 Mg Tablet, 325 MG PO Q4H Y for PAIN AND OR ELEVATED TEMP, #30 TAB 12/18/16 Multivit/Min/Fol Ac/Iron/Pren* ( S*) 1 Tab Tab, 1 TAB PO DAILY, TAB 12/16/16 Follow-up Plan 2-3 days in clinic for staple removal Primary Care Provider Kayli Car Pending Labs Laboratory Tests Test 12/26/16 09:44 White Blood Count 13.610^3/ul (4.8-10.8) Red Blood Count 3.4410^6/ul (4.20-5.40) Hemoglobin 10.4g/dl (12.0-16.0) Hematocrit 32.8% (37.0-47.0) Mean Corpuscular Volume 95.3fl (82.0-101.0) Mean Corpuscular Hemoglobin 30.2pg (29.0-33.0) Mean Corpuscular Hemoglobin Concent 31.7g/dl (32.0-37.0) Red Cell Distribution Width 13.4% (11.5-14.5) Platelet Count 20796^3/UL (140-415) Mean Platelet Volume 11.3fl (7.4-10.4) Neutrophils % 74.9% (39.0-77.0) Lymphocytes % 19.2% (15.0-51.0) Monocytes % 4.3% (0.0-11.0) Eosinophils % 0.4% (0.0-7.0) Basophils % 0.1% (0.0-2.0) Nucleated Red Blood Cells % 0.3/100WBC (0.0-0.0) Neutrophils # 10.210^3/ul (1.6-7.5) Lymphocytes # 2.610^3/ul (0.8-2.9) Monocytes # 0.610^3/ul (0.3-0.9) Eosinophils # 0.110^3/ul (0.0-0.5) Basophils # 0.010^3/ul (0.0-0.1) Nucleated Red Blood Cells # 0.010^3/ul (0.0-0.0) Sodium Level 142mmol/L (135-144) Potassium Level 4.1mmol/L (3.5-5.1) Chloride Level 111mmol/L (97-110) Carbon Dioxide Level 26mmol/L (21-31) Anion Gap 9 (8-16) Blood Urea Nitrogen 13mg/dl (7-20) Creatinine 0.87mg/dl (0.44-1.00) Glucose Level 118mg/dl (70-220) Calcium Level 7.9mg/dl (8.4-10.2) Total Bilirubin 0.3mg/dl (0.2-1.3) Direct Bilirubin 0.00mg/dl (0.00-0.20) Indirect Bilirubin 0.3mg/dl (0-1.1) Aspartate Amino Transf (AST/SGOT) 32IU/L (15-46) Alanine Aminotransferase (ALT/SGPT) 22IU/L (13-69) Alkaline Phosphatase 112IU/L (42-121) Total Protein 5.8g/dl (6.1-8.1) Albumin 3.4g/dl (3.3-4.9) Globulin 2.40g/dl (1.3-3.2) Albumin/Globulin Ratio 1.41 GISEL LAWLER MD Dec 26, 2016 16:23
--- NOTE | 2016-12-26 16:25 | PD.PPDC ---
[employer] Discharge Instruction Provider Information Physician Information 26 y/o female had primary C/S for severe PIH Diagnosis Final Diagnosis: S/P C?S Condition Patient Condition: Good Diet Diet: Resume Regular Diet Activity/Restrictions Activity: November Shower Restrictions: No Exercising No Lifting Nothing in the Vagina Return to Work or School: Feb 28, 2017 Wound/Drain Care Instructions Wound/Drain Care Instructions: Keep clean and dry Follow-up Follow-up with Physician: 2, 3, Day/Days (in clinic for staple removal ) Return to clinic for IRRIGATOR GRAVITY FLOW Instructions: Fever greater than 101 Chills OB Instructions: Breast Tenderness Depression Surgical Instructions: Incisional Drainage Incisional Redness GISEL LAWLER MD Dec 26, 2016 16:25
[2016-12-26] MEDS ORDERED: IBUP800T25 PO (16:26)
[2016-12-26] MEDS ORDERED: LABE200T25 PO (16:26)
[2016-12-26] MEDS ORDERED: Oxycodone/Acetamin (5/325) PO (16:26)
[2016-12-26 21:00] VITALS: BP 145/67; PULSE 55; RESP 18
[2016-12-27] MEDS: CLINDAMYCIN 300 MG CAP PO SCH ×4 (00:28→18:24)
[2016-12-27 05:00] VITALS: BP 155/61; PULSE 57; RESP 19
[2016-12-27] MEDS: IBUPROFEN 800 MG TAB PO SCH ×2 (05:59→14:11)
[2016-12-27 07:35] VITALS: BP 197/95; PULSE 53; RESP 16
[2016-12-27] MEDS: LABETALOL 200 MG TAB PO SCH (07:46)
[2016-12-27 08:10] VITALS: BP 182/86; PULSE 54; RESP 16
--- NOTE | 2016-12-27 08:16 | RADRPT ---
PROCEDURE: XR Chest. CLINICAL INDICATION: chest pain TECHNIQUE: Single frontal view of the chest was obtained COMPARISON: None FINDINGS: The heart and mediastinum are within normal limits. The lungs are clear. There is no pleural effusion or pneumothorax. RPTAT: AA IMPRESSION: No acute disease. .Francesco Hamilton MD, Date Time Electronically viewed and signed by .Francesco Hamilton MD, on 12/27/2016 08:16 .S/
[2016-12-27] MEDS ORDERED: DIPHTH/TET/ACEL PERTUSS (ADULT) 0.5 ML VIAL IM* ONE (09:00)
[2016-12-27] MEDS ORDERED: MEASLES,MUMPS,RUBELLA VACCINE INJ SC* ONE (09:00)
[2016-12-27] MEDS: SENNA/DOCUSATE NA (8.6MG/50MG) TAB PO SCH (09:00)
[2016-12-27 09:10] VITALS: BP 127/72; PULSE 80
[2016-12-27 15:09] LABS: ADD SCAN DIFF NO
[2016-12-27 15:11] LABS: BASOPHILS % 0.3 % (0.0-2.0); EOSINOPHILS # 0.2 10^3/ul (0.0-0.5); EOSINOPHILS % 1.5 % (0.0-7.0); HEMATOCRIT 31.4 % (37.0-47.0); HEMOGLOBIN 10.3 g/dl (12.0-16.0); LYMPHOCYTES # 2.2 10^3/ul (0.8-2.9); LYMPHOCYTES % 20.6 % (15.0-51.0); MEAN CORPUSCULAR HEMOGLOBIN 31.2 pg (29.0-33.0); MEAN CORPUSCULAR HGB CONC 32.8 g/dl (32.0-37.0); MEAN CORPUSCULAR VOLUME 95.2 fl (82.0-101.0); MEAN PLATELET VOLUME 10.8 fl (7.4-10.4); MONOCYTE # 0.6 10^3/ul (0.3-0.9); MONOCYTES % 5.4 % (0.0-11.0); NEUTROPHIL # 7.7 10^3/ul (1.6-7.5); NEUTROPHILS % 70.8 % (39.0-77.0); NUCLEATED RED BLOOD CELLS% 0.3 /100WBC (0.0-0.0); PLATELET COUNT 175 10^3/UL (140-415); RED CELL DISTRIBUTION WIDTH 13.3 % (11.5-14.5); WHITE BLOOD COUNT 10.8 10^3/ul (4.8-10.8)
[2016-12-27 15:30] LABS: ALBUMIN 3.6 g/dl (3.3-4.9); ALBUMIN/GLOBULIN RATIO 1.38; BILIRUBIN,INDIRECT 0.4 mg/dl (0-1.1); BILIRUBIN,TOTAL 0.4 mg/dl (0.2-1.3); CALCIUM 8.9 mg/dl (8.4-10.2); CREATININE 0.87 mg/dl (0.44-1.00); POTASSIUM 4.7 mmol/L (3.5-5.1); TOTAL PROTEIN 6.2 g/dl (6.1-8.1)
[2016-12-27 15:40] VITALS: BP 171/84; PULSE 53; RESP 16
--- NOTE | 2016-12-29 17:46 | RADRPT ---
Vent Rate: 48 bpm RR Interval: 0 msec MA Interval: 122 msec QRS Duration: 70 msec QT Interval: 418 msec QTC Interval: 373 msec P-R-T [place]: 40 - 48 - 56 degrees Marked sinus bradycardia Abnormal ECG Electronically Signed By: Esvin Dent [id number]
== END 2016-12-27 20:50 | disposition home or self-care (01) | DRG 765 ==
LOC: OBT 09:34 → L-D 09:35 → OBT 11:33 → L-D 11:35 → PP1 12-24 05:51
PROVIDERS: ADMIT Obstetrics & Gynecology; ATTEND Obstetrics & Gynecology
PROC: 10D00Z1 Extraction of Products of Conception, Low, Open Approach (ICD-10-PCS; principal; 2016-12-24)
DX: O13.3 Gestational [pregnancy-induced] hypertension without significant proteinuria, third trimester (principal); O60.14X0 Preterm labor third trimester with preterm delivery third trimester, not applicable or unspecified; Z3A.35 35 weeks gestation of pregnancy; Z37.0 Single live birth
CPT/HCPCS: 36415; 71010; 76705; 80053; 81001; 83735; 84560; 85025; 85610; 85730; 86592; 86850; 86900; 86901; 86920; 87340; 90715; 93005; 94760; 96365; 96372; 96374; 99464; G0463; J0131; J0290; J0690; J0702; J1200; J1885; J2175; J2274; J2405; J2590; J2765; J3010; J3475; J7120

== ENCOUNTER 2017-05-02 05:18 | Emergency (ER) | payer OTHER ==
[~2017-05-02] VITALS: Ht 175.3 cm; Wt 72.0 kg
[~2017-05-02 05:18] MED LIST changes: -ACET325T45 PO; +IBUP800T25 PO; +LABE200T25 PO; +Oxycodone/Acetamin (5/325) PO
[2017-05-02 05:21] VITALS: Ht 175.3 cm; Wt 72.0 kg
[2017-05-02] MEDS ORDERED: KETOROLAC 60 MG INJ IM STA (05:36)
[2017-05-02] MEDS ORDERED: DIAZEPAM 2 MG TAB PO ONE (06:00)
[2017-05-02] MEDS ORDERED: CYCL-319 PO (06:17)
[2017-05-02] MEDS ORDERED: HYDR-906 PO (06:17)
[2017-05-02] MEDS ORDERED: NAPR-260 PO (06:17)
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
== END 2017-05-02 06:25 | disposition home or self-care (01) ==
LOC: FTE 05:18
DX: M54.2 Cervicalgia (principal)
CPT/HCPCS: 96372; J1885; Z7502; Z7610